=== PATIENT | male | born 1960 | race Caucasian/White ===

== ENCOUNTER 2020-01-01 05:12 | Emergency (ER) | payer OTHER ==
[~2020-01-01] VITALS: Ht 193 cm; Wt 117.9 kg
[~2020-01-01 05:12] MED LIST: OXYC15ER PO; Roxicodone5 MG PO
[2020-01-01] MEDS ORDERED: POTCHL20ER PO (05:29)
[2020-01-01] MEDS ORDERED: OMEPRAZOLE MAGN20 MG PO (05:29)
[2020-01-01] MEDS ORDERED: ATOR40TA PO (05:29)
[2020-01-01] MEDS ORDERED: FURO20 PO (05:30)
[2020-01-01] MEDS ORDERED: [UNRECOGNIZED DRUG - OTHER] (05:35)
[2020-01-01] MEDS ORDERED: Roxicodone5 MG PO ×2 (07:49→07:51)
== END 2020-01-01 08:09 | disposition home or self-care (01) ==
LOC: ER 05:12
DX: S62.305D Unspecified fracture of fourth metacarpal bone, left hand, subsequent encounter for fracture with routine healing (principal); S62.307D Unspecified fracture of fifth metacarpal bone, left hand, subsequent encounter for fracture with routine healing; F43.10 Post-traumatic stress disorder, unspecified; G62.9 Polyneuropathy, unspecified; Z79.899 Other long term (current) drug therapy
CPT/HCPCS: 73130; 99283-25